=== PATIENT | male | born 1985 | race Caucasian/White ===

== ENCOUNTER 2018-04-10 18:13 | Emergency (ER) | payer SELFPAY ==
[2018-04-10 19:03] VITALS: BP 169/99
== END 2018-04-10 20:36 | disposition left against medical advice (07) ==
LOC: ED 18:13
DX: I10 Essential (primary) hypertension (principal); M54.9 Dorsalgia, unspecified; R51 Headache; Z53.21 Procedure and treatment not carried out due to patient leaving prior to being seen by health care provider